=== PATIENT | male | born 1955 | race African-American/Black ===

== ENCOUNTER 2018-01-15 19:21 | Emergency (ER) | payer OTHER ==
[~2018-01-15] VITALS: Ht 172.7 cm; Wt 68.0 kg
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
[2018-01-15 19:33] VITALS: BP 144/87
[2018-01-15] MEDS ORDERED: IBUPROFEN600 MG ORAL (20:08)
[2018-01-15 20:13] VITALS: BP 144/87
--- NOTE | 2018-01-16 10:36 | Diagnostic Imaging Report ---
Indication: Back pain Comparison: None Findings: 3 views of the lumbar spine were obtained. The study is significantly limited by portable technique and underexposure. There is narrowing of the intervertebral discs particularly at L4-5. There is a suggestion of degenerative facet arthropathy in the lower part of the lumbar spine. The bones appear osteopenic. IMPRESSION: Degenerative changes demonstrated. No obvious fracture. Limited evaluation.
--- NOTE | 2018-01-16 10:37 | Diagnostic Imaging Report ---
Indication: left shoulder pain Findings: 3 views of the left shoulder were obtained. Alignment of the left shoulder is normal. No acute fracture is identified. Soft tissues are unremarkable. Impression: No acute injury
== END 2018-01-15 20:10 ==
LOC: EDBD 19:21 → EMR 19:30
DX: S30.0XXA Contusion of lower back and pelvis, initial encounter (principal); S40.012A Contusion of left shoulder, initial encounter; Y35.811A Legal intervention involving manhandling, law enforcement official injured, initial encounter; Y93.89 Activity, other specified; Y92.89 Other specified places as the place of occurrence of the external cause
CPT/HCPCS: 72020; 99283